=== PATIENT | female | born 1990 | race Caucasian/White ===

== ENCOUNTER 2017-01-04 04:08 | Observation (INO) | payer OTHER ==
[~2017-01-04] VITALS: Ht 149 cm; Wt 66.2 kg
[2017-01-04] MEDS ORDERED: RINGERS SOLUTION,LACTATED 1,000 ML IV ONE (04:30)
[2017-01-04] MEDS ORDERED: NIFEdipine 10 MG CAPSULE PO ONE (04:30)
[2017-01-04 05:18] VITALS: BP 100/57
[2017-01-04] MEDS ORDERED: FOLI0.4T30 PO (05:26)
[2017-01-04] MEDS ORDERED: PREN1TAB80 PO (05:26)
== END 2017-01-04 05:40 | disposition home or self-care (01) ==
LOC: 4S 04:08
PROVIDERS: ADMIT Obstetrics & Gynecology; ATTEND Obstetrics & Gynecology
DX: O26.893 Other specified pregnancy related conditions, third trimester (principal); R10.30 Lower abdominal pain, unspecified; Z3A.29 29 weeks gestation of pregnancy
CPT/HCPCS: 59025; G0378; 96360

== ENCOUNTER 2017-01-25 07:45 | Observation (INO) | payer OTHER ==
[~2017-01-25] VITALS: Ht 148 cm; Wt 83.9 kg
[~2017-01-25 07:45] MED LIST: FOLI0.4T30 PO; PREN1TAB80 PO
[2017-03-07 21:23] VITALS: BP 119/74
[2017-03-07] MEDS ORDERED: FERR134T2 PO (23:39)
== END 2017-03-08 00:40 | disposition home or self-care (01) ==
LOC: 4S 03-07 21:06
PROVIDERS: ADMIT Obstetrics & Gynecology; ATTEND Obstetrics & Gynecology
DX: O62.9 Abnormality of forces of labor, unspecified (principal); Z3A.38 38 weeks gestation of pregnancy
CPT/HCPCS: 59025; G0378 ×2

== ENCOUNTER 2017-03-18 01:33 | Observation (INO) | payer OTHER ==
[~2017-03-18] VITALS: Ht 147.3 cm; Wt 72.1 kg
[~2017-03-18 01:33] MED LIST changes: +FERR134T2 PO
[2017-03-18 02:14] VITALS: BP 113/70
[2017-03-18] MEDS ORDERED: RINGERS SOLUTION,LACTATED 1,000 ML IV ONE (04:15)
== END 2017-03-18 05:05 | disposition left against medical advice (07) ==
LOC: 4S 01:33
PROVIDERS: ADMIT Obstetrics & Gynecology; ATTEND Obstetrics & Gynecology
DX: O62.9 Abnormality of forces of labor, unspecified (principal); O48.0 Post-term pregnancy; Z3A.40 40 weeks gestation of pregnancy
CPT/HCPCS: 59025; G0378

== ENCOUNTER 2017-03-24 08:25 | Inpatient (IN) | payer OTHER ==
[~2017-03-24] VITALS: Ht 147.3 cm; Wt 72.6 kg
[2017-03-24] MEDS ORDERED: OXYTOCIN 30 UNITS/LACT RINGERS 500 ML IV ONE (09:05)
[2017-03-24] MEDS ORDERED: RINGERS SOLUTION,LACTATED 1,000 ML IV PRN (09:05)
[2017-03-24] MEDS ORDERED: METOCLOPRAMIDE HCL 5 MG/ML 2 ML VIAL IVP PRN (09:15)
[2017-03-24] MEDS ORDERED: CITRIC ACID/SODIUM CITRATE 30 ML SOLUTION UDCUP PO PRN (09:15)
[2017-03-24 09:19] VITALS: BP 112/66
[2017-03-24 09:51] LABS: BASOPHILS # (AUTO) 0.02 K/uL (0.00-0.20); BASOPHILS % (AUTO) 0.3 % (0.0-2.0); EOSINOPHILS # (AUTO) 0.07 K/uL (0.00-0.70); EOSINOPHILS % (AUTO) 1.12 % (1.0-6.0); HEMATOCRIT 35.1 % (36-46); HEMOGLOBIN 11.6 g/dL (12.0-16.0); LYMPHOCYTES # (AUTO) 1.5 K/uL (1.0-4.8); LYMPHOCYTES % (AUTO) 22.5 % (22.0-44.0); MEAN CORPUSCULAR HEMOGLOBIN 28.3 pg (26.0-34.0); MEAN CORPUSCULAR HGB CONC 33.1 G/dL (31.0-37.0); MEAN CORPUSCULAR VOLUME 85 fL (80-100); MONOCYTES # (AUTO) 0.4 K/uL (0.1-1.0); NEUTROPHILS # (AUTO) 4.7 K/uL (1.8-7.7); NEUTROPHILS % (AUTO) 70.1 % (40.0-70.0); RED BLOOD CELL COUNT(AUTO) 4.11 MIL/uL (4.00-5.20); RED CELL DISTRIBUTION WIDTH 16.7 % (11.5-14.5); WHITE BLOOD COUNT (AUTO) 6.7 K/uL (4.5-11.0)
[2017-03-24] MEDS ORDERED: AMPICILLIN SODIUM 2 GM/NS 100 ML IV ONE (10:00)
[2017-03-24] MEDS ORDERED: OXYTOCIN 30 UNITS/LACT RINGERS 500 ML IV PRN (10:12)
[2017-03-24] MEDS ORDERED: FentaNYL/BUPIV 0.125%/NS/PF 200 ML ED ONE (10:19)
[2017-03-24] MEDS: RINGERS SOLUTION,LACTATED 1,000 ML IV SCH ×2 (10:22→15:44)
[2017-03-24] MEDS: FentaNYL CITRATE-PF 100 MCG/2 ML VIAL IVP PRN ×2 (12:57→13:04)
[2017-03-24] MEDS: AMPICILLIN SODIUM 1 GM/NS 50 ML IV SCH ×3 (14:26→22:11)
[2017-03-24] MEDS ORDERED: FentaNYL/BUPIV 0.125%/NS/PF 200 ML ED PRN (14:52)
[2017-03-24] MEDS ORDERED: ONDANSETRON HCL 4 MG/2 ML VIAL IVP PRN (15:00)
[2017-03-24] MEDS ORDERED: DiphenhydrAMINE HCL 50 MG/ML VIAL IVP PRN (15:00)
[2017-03-24] MEDS ORDERED: LIDOCAINE HCL 2%/EPI 1:200,000/PF 10 ML VIAL ONE (15:23)
[2017-03-24] MEDS ORDERED: OXYGEN THERAPY IH SCH (20:00)
[2017-03-25] MEDS ORDERED: LANOLIN 7 GM OINTMENT TP PRN ×2 (01:30→19:30)
[2017-03-25] MEDS ORDERED: ACETAMINOPHEN/CODEINE 300-30 MG TABLET PO PRN ×4 (01:30→19:30)
[2017-03-25] MEDS ORDERED: BENZOCAINE 20%/MENTHOL 56 GM SPRAY CANISTER TP PRN ×2 (01:30→19:30)
[2017-03-25] MEDS ORDERED: IBUPROFEN 600 MG TABLET PO PRN ×3 (01:30→20:30)
[2017-03-25] MEDS ORDERED: GLYCERIN/WITCH HAZEL LEAF 40 PADS JAR TP PRN ×2 (01:30→19:30)
[2017-03-25] MEDS ORDERED: MAGNESIUM HYDROXIDE SUSPENSION 30 ML UDCUP PO SCH (09:00)
[2017-03-25] MEDS ORDERED: SENNA/DOCUSATE SODIUM 187-50 MG TABLET PO SCH (09:00)
[2017-03-25] MEDS ORDERED: OxyCODONE HCL/ACETAMINOPHEN 5-325 MG TABLET PO PRN ×2 (19:30)
[2017-03-25] MEDS: MAGNESIUM HYDROXIDE SUSPENSION 30 ML UDCUP PO SCH (20:52)
[2017-03-25] MEDS: SENNA/DOCUSATE SODIUM 187-50 MG TABLET PO SCH (20:52)
[2017-03-26] MEDS: SENNA/DOCUSATE SODIUM 187-50 MG TABLET PO SCH (09:00)
[2017-03-26] MEDS: MAGNESIUM HYDROXIDE SUSPENSION 30 ML UDCUP PO SCH (09:00)
[2017-03-26] MEDS ORDERED: IBUP-2070 PO (09:42)
[2017-03-26] MEDS ORDERED: DSS100 PO (09:42)
== END 2017-03-26 11:25 | disposition home or self-care (01) | DRG 775 ==
LOC: 4S 08:25 → OBSVTOIN 08:25
PROVIDERS: ADMIT Obstetrics & Gynecology; ATTEND Obstetrics & Gynecology
PROC: 10E0XZZ Delivery of Products of Conception, External Approach (ICD-10-PCS; principal; 2017-03-24)
PROC: 0KQM0ZZ Repair Perineum Muscle, Open Approach (ICD-10-PCS; 2017-03-24)
PROC: 0UQMXZZ Repair Vulva, External Approach (ICD-10-PCS; 2017-03-24)
PROC: 0W8NXZZ Division of Female Perineum, External Approach (ICD-10-PCS; 2017-03-24)
PROC: 3E0S3CZ (ICD-10-PCS; 2017-03-24)
PROC: 00HU33Z Insertion of Infusion Device into Spinal Canal, Percutaneous Approach (ICD-10-PCS; 2017-03-24)
DX: O99.824 Streptococcus B carrier state complicating childbirth (principal); O34.13 Maternal care for benign tumor of corpus uteri, third trimester; O77.0 Labor and delivery complicated by meconium in amniotic fluid; O48.0 Post-term pregnancy; O70.1 Second degree perineal laceration during delivery; O71.82 Other specified trauma to perineum and vulva; Z3A.41 41 weeks gestation of pregnancy; Z37.0 Single live birth
CPT/HCPCS: J0290; J2590; J3010; J3490; J7120